=== PATIENT | male | born 1965 | race Two or more races ===

== ENCOUNTER 2025-07-06 15:39 | Inpatient (IN) | payer OTHER ==
[~2025-07-06] VITALS: Ht 170.2 cm; Wt 84.0 kg
[2025-07-06] MEDS ORDERED: SODIUM CHLORIDE 0.9% 1,000 ML IV ONE (16:00)
[2025-07-06] MEDS ORDERED: 0.9% SODIUM CHLORIDE 10 ML SYRINGE IVP PRN (16:00)
[2025-07-06 16:24] LABS: COVID AG,FIA SOURCE NASAL SWAB
[2025-07-06] MEDS: ACETAMINOPHEN 1000 MG/ISO-OSM 100 ML IV ONE (16:25)
[2025-07-06 16:52] LABS: SARS-COV2 (COVID) ANTIGEN,FIA Negative (Negative)
[2025-07-06 16:53] LABS: INFLUENZA TYPE A NEGATIVE FOR TYPE A (NEGATIVE); INFLUENZA TYPE B NEGATIVE FOR TYPE B (NEGATIVE)
[2025-07-06 17:06] LABS: CALCIUM, TOTAL 8.1 mg/dL (8.8-10.5); CREATININE 5.96 mg/dL (0.60-1.30); GLOMERULAR FILTR. RATE CALC 10 mL/min (>60); GLUCOSE,RANDOM 150 mg/dL (70-110); SODIUM SERUM 128 mmol/L (136-145); UREA NITROGEN, BLOOD 68 mg/dL (7-18)
[2025-07-06 17:09] LABS: ALCOHOL, BLOOD (SERUM) < 3 mg/dL (0-10)
[2025-07-06 17:10] LABS: PLATELET COUNT (AUTO) 123 K/uL (150-450); RED BLOOD CELL COUNT(AUTO) 3.53 MIL/uL (4.50-5.90); RED CELL DISTRIBUTION WIDTH 13.3 % (11.5-14.5); WHITE BLOOD COUNT (AUTO) 14.7 K/uL (4.5-11.0)
[2025-07-06 17:16] LABS: LACTIC ACID 1.4 mmol/L (0.4-2.0)
[2025-07-06 17:17] LABS: TROPONIN I-HIGH SENSITIVITY 379 ng/L (<76)
[2025-07-06] MEDS: PIPERACILLIN/TAZO 3.375 GM/D5W 50 ML IV ONE (17:23)
[2025-07-06] MEDS: VANCOMYCIN 1.25 GM/WATER(PEG) 250 ML IV ONE (17:24)
[2025-07-06 17:32] LABS: ASPARTATE AMINOTRANSFERASE 38 U/L (15-37); CREATINE KINASE, TOTAL ONLY 849 U/L (39-308); TOTAL PROTEIN, SERUM 7.2 g/dL (6.4-8.2)
[2025-07-06 18:02] LABS: BAND NEUTROPHILS % (MANUAL) 2 % (0-5); LYMPHOCYTES % (MANUAL) 7 % (22-44); MONOCYTES % (MANUAL) 3 % (2-9); SEGMENTED NEUTROPHILS % 88 % (40-70)
[2025-07-06 18:40] LABS: APPEARANCE,URINE HAZY (CLEAR); GLUCOSE, URINE (UA) 300-500 mg/dL (NEGATIVE); LEUKOCYTE ESTERASE ,URINE NEGATIVE (NEGATIVE); NITRATE,URINE NEGATIVE (NEGATIVE); OCCULT BLOOD,URINE LARGE (NEGATIVE); PH,URINE DRUG SCREEN 6.0 (5.0-8.0); SPECIFIC GRAVITIY, URINE 1.015 (1.003-1.030)
[2025-07-06 18:53] LABS: ALCOHOL, URINE DRUG SCREEN NEGATIVE (NEGATIVE); AMPHET/METH SCREEN,URINE NEGATIVE (NEGATIVE); BARBITURATE SCREEN, URINE NEGATIVE (NEGATIVE); CANNABINOID SCREEN,URINE NEGATIVE (NEGATIVE); COCAINE SCREEN,URINE NEGATIVE (NEGATIVE); METHADONE SCREEN, URINE NEGATIVE (NEGATIVE)
[2025-07-06 19:01] LABS: SQUAMOUS EPITHELIAL CELL,UR Few /LPF (None Seen)
[2025-07-06 19:02] LABS: SULFOSALICYLIC ACID,URINE 1+ (Negative)
[2025-07-06 19:22] LABS: TROPONIN I-HIGH SENSITIVITY 597 ng/L (<76)
[2025-07-06] MEDS: LABETALOL HCL 5 MG/ML 20 ML VIAL IVP PRN (21:35)
[2025-07-06] MEDS ORDERED: ZOLPIDEM TARTRATE 5 MG TABLET PO PRN (21:45)
[2025-07-06] MEDS ORDERED: ONDANSETRON HCL 4 MG/2 ML VIAL IVP PRN (21:45)
[2025-07-06] MEDS ORDERED: MORPHINE SULFATE 4 MG/ML SYRINGE IVP PRN (21:45)
[2025-07-06] MEDS ORDERED: MAGNESIUM HYDROXIDE SUSPENSION 30 ML UDCUP PO PRN (21:45)
[2025-07-06] MEDS ORDERED: PIPERACILLIN/TAZO 3.375 GM/D5W 50 ML IV ONE (21:45)
[2025-07-06] MEDS ORDERED: BISACODYL 10 MG RECTAL RECTAL SUPPOSITORY PR PRN (21:45)
[2025-07-06] MEDS: POTASSIUM CHLORIDE 20 MEQ ER TABLET PO ONE (22:30)
[2025-07-06] MEDS: NIFEdipine 60 MG ER TABLET PO ONE (22:54)
[2025-07-06 23:45] VITALS: BP 147/95; PULSE 122; RESP 21; TEMP 99; O2SAT 97
[2025-07-07] VITALS (13 sets, daily range): BP systolic 97–136; BP diastolic 65–89; PULSE 88–113; RESP 18–21; TEMP 97.5–99.7; O2SAT 94–99
[2025-07-07] MEDS: PIPERACILLIN SODIUM/TAZOBACTAM 2.25 GM in DEXTROSE 5%-WATER 50 ML IV ONE (00:12)
[2025-07-07] MEDS: ACETAMINOPHEN 325 MG TABLET PO PRN (00:13)
[2025-07-07] MEDS: HEPARIN SODIUM,PORCINE 5,000 UNITS/ML VIAL SQ SCH (00:13)
[2025-07-07] MEDS: ASPIRIN 81 MG CHEWABLE TABLET PO SCH (08:36)
[2025-07-07] MEDS: PANTOPRAZOLE SODIUM 40 MG DR TABLET PO SCH (08:36)
[2025-07-07] MEDS ORDERED: HEPARIN SODIUM,PORCINE 1,000 UNITS/ML VIAL ONE (09:24)
[2025-07-07] MEDS ORDERED: SODIUM CHLORIDE 0.9% 2,000 ML ONE (12:50)
[2025-07-07] MEDS ORDERED: VANCOMYCIN 1GM/WATER(PEG/NADA) 200 ML IV PRN (14:00)
[2025-07-07] MEDS: HEPARIN SODIUM,PORCINE 1,000 UNITS/ML VIAL IVCATH ONE ×2 (19:20)
[2025-07-07] MEDS: CHLORHEXIDINE GLUCONATE 2% TOWELETTE [2'S/6'S] TP SCH (21:29)
[2025-07-08] VITALS (14 sets, daily range): BP systolic 112–126; BP diastolic 72–90; PULSE 96–120; RESP 20–36; TEMP 98.4–100.4; O2SAT 89–100
[2025-07-08 06:14] LABS: PLATELET COUNT (AUTO) 119 K/uL (150-450); RED BLOOD CELL COUNT(AUTO) 3.34 MIL/uL (4.50-5.90); RED CELL DISTRIBUTION WIDTH 13.5 % (11.5-14.5); WHITE BLOOD COUNT (AUTO) 14.5 K/uL (4.5-11.0)
[2025-07-08] MEDS: ALBUTEROL SULFATE 2.5 MG/0.5 ML NEB SOLUTION NEB PRN (09:34)
[2025-07-08] MEDS: IPRATROPIUM BROMIDE 0.5 MG/2.5 ML NEB SOLUTION NEB PRN (09:35)
[2025-07-08] MEDS: VANCOMYCIN 1GM/WATER(PEG/NADA) 200 ML IV ONE (11:44)
[2025-07-08] MEDS: METOPROLOL SUCCINATE 25 MG ER TABLET PO SCH (15:08)
[2025-07-08] MEDS: CeFAZolin 1 GM/DEXTROSE 50 ML IV SCH (18:33)
[2025-07-09] VITALS (12 sets, daily range): BP systolic 100–138; BP diastolic 64–87; PULSE 78–103; RESP 18–20; TEMP 97.9–99.7; O2SAT 90–100
[2025-07-09 06:40] LABS: PLATELET COUNT (AUTO) 138 K/uL (150-450); RED BLOOD CELL COUNT(AUTO) 2.96 MIL/uL (4.50-5.90); RED CELL DISTRIBUTION WIDTH 13.9 % (11.5-14.5); WHITE BLOOD COUNT (AUTO) 13.0 K/uL (4.5-11.0)
[2025-07-09 06:55] LABS: ASPARTATE AMINOTRANSFERASE 24.0 U/L (15-37); CALCIUM, TOTAL 8.0 mg/dL (8.8-10.5); CREATININE 8.37 mg/dL (0.60-1.30); GLOMERULAR FILTR. RATE CALC 7.0 mL/min (>60); GLUCOSE,RANDOM 166.0 mg/dL (70-110); SODIUM SERUM 132.0 mmol/L (136-145); TOTAL PROTEIN, SERUM 6.5 g/dL (6.4-8.2); UREA NITROGEN, BLOOD 84.0 mg/dL (7-18)
[2025-07-09] MEDS: POTASSIUM CHLORIDE 20 MEQ ER TABLET PO ONE (13:53)
[2025-07-10] VITALS (8 sets, daily range): BP systolic 118–140; BP diastolic 63–86; PULSE 95–102; RESP 18–20; TEMP 97.5–98.8; O2SAT 92–95
[2025-07-10 06:23] LABS: PLATELET COUNT (AUTO) 214 K/uL (150-450); RED BLOOD CELL COUNT(AUTO) 2.92 MIL/uL (4.50-5.90); RED CELL DISTRIBUTION WIDTH 14.1 % (11.5-14.5); WHITE BLOOD COUNT (AUTO) 12.1 K/uL (4.5-11.0)
[2025-07-10] MEDS: ESCITALOPRAM OXALATE 10 MG TABLET PO SCH (07:50)
[2025-07-10] MEDS: HYDROCODONE/ACETAMINOPHEN 5-325 MG TABLET PO PRN (14:00)
[2025-07-10] MEDS: MELATONIN 5 MG TABLET PO SCH (21:10)
[2025-07-11] VITALS (14 sets, daily range): BP systolic 123–144; BP diastolic 66–90; PULSE 89–110; RESP 16–18; TEMP 97.9–100; O2SAT 94–97
[2025-07-11] MEDS ORDERED: VANCOMYCIN 1GM/WATER(PEG/NADA) 200 ML IV ONE (13:00)
[2025-07-11] MEDS: HEPARIN SODIUM,PORCINE 1,000 UNITS/ML VIAL IVCATH ONE ×2 (16:38)
[2025-07-12 00:40] VITALS: TEMP 98.4
[2025-07-12 08:09] LABS: PLATELET COUNT (AUTO) 355 K/uL (150-450); RED BLOOD CELL COUNT(AUTO) 2.89 MIL/uL (4.50-5.90); RED CELL DISTRIBUTION WIDTH 13.7 % (11.5-14.5); WHITE BLOOD COUNT (AUTO) 14.9 K/uL (4.5-11.0)
[2025-07-12 08:18] LABS: CALCIUM, TOTAL 7.9 mg/dL (8.8-10.5); CREATININE 7.43 mg/dL (0.60-1.30); GLOMERULAR FILTR. RATE CALC 8.0 mL/min (>60); GLUCOSE,RANDOM 92.0 mg/dL (70-110); SODIUM SERUM 133.0 mmol/L (136-145); UREA NITROGEN, BLOOD 60.0 mg/dL (7-18)
[2025-07-12 09:14] VITALS: BP 127/71; PULSE 95; RESP 18; TEMP 97.6; O2SAT 90
[2025-07-12 12:52] VITALS: BP 119/69; PULSE 72; RESP 18; TEMP 98.8; O2SAT 96
[2025-07-12 17:03] VITALS: BP 124/78; PULSE 93; RESP 18; TEMP 98.2; O2SAT 96
[2025-07-12 20:02] VITALS: BP 135/77; PULSE 100; RESP 18; TEMP 98.1; O2SAT 96
[2025-07-13 04:09] VITALS: BP 128/82; PULSE 96; RESP 18; TEMP 98.4; O2SAT 98
[2025-07-13 06:00] LABS: PLATELET COUNT (AUTO) 403 K/uL (150-450); RED BLOOD CELL COUNT(AUTO) 2.72 MIL/uL (4.50-5.90); RED CELL DISTRIBUTION WIDTH 13.7 % (11.5-14.5); WHITE BLOOD COUNT (AUTO) 12.4 K/uL (4.5-11.0)
[2025-07-13 06:24] LABS: CALCIUM, TOTAL 8.0 mg/dL (8.8-10.5); CREATININE 9.24 mg/dL (0.60-1.30); GLOMERULAR FILTR. RATE CALC 6.0 mL/min (>60); GLUCOSE,RANDOM 87.0 mg/dL (70-110); SODIUM SERUM 133.0 mmol/L (136-145); UREA NITROGEN, BLOOD 76.0 mg/dL (7-18)
[2025-07-13] MEDS ORDERED: LIDOCAINE/PF 1% 30 ML VIAL ONE (07:42)
[2025-07-13] MEDS ORDERED: BUPIVACAINE HCL/PF 0.25% 30 ML VIAL ONE (07:42)
[2025-07-13] MEDS ORDERED: BUPIVACAINE 0.25%/EPI 1:200,000/PF 30 ML VIAL ONE (07:42)
[2025-07-13] MEDS ORDERED: LIDOCAINE 1%/EPI 1:200,000/PF 30 ML VIAL ONE (07:42)
[2025-07-13] MEDS ORDERED: HYDROGEN PEROXIDE 3% 473 ML SOLUTION ONE (07:43)
[2025-07-13] MEDS ORDERED: GELATIN SPONGE,ABSORBABLE 50 MM TP ONE (07:44)
[2025-07-13] MEDS ORDERED: HEPARIN SODIUM 1000 UNITS/NS 0 ML ONE (07:47)
[2025-07-13] MEDS ORDERED: SODIUM CHLORIDE 0.9% 1,000 ML ONE (08:15)
[2025-07-13 11:52] VITALS: BP 133/74; PULSE 77; RESP 18; TEMP 98.1; O2SAT 93
[2025-07-13] MEDS ORDERED: MIDAZOLAM HCL 2 MG/2 ML VIAL ONE (12:00)
[2025-07-13] MEDS ORDERED: FentaNYL CITRATE PF 100 MCG/2 ML VIAL ONE (12:00)
[2025-07-13 15:30] VITALS: BP 137/76; PULSE 104; RESP 18; TEMP 97.9; O2SAT 95
[2025-07-13 21:03] VITALS: BP 154/94; PULSE 99; RESP 18; TEMP 98.4; O2SAT 97
[2025-07-13 23:15] VITALS: BP 163/84; PULSE 90; RESP 18; TEMP 98.4; O2SAT 97
[2025-07-13] MEDS: MELATONIN 5 MG TABLET PO PRN (23:55)
[2025-07-14 00:17] VITALS: BP 163/84; PULSE 90; RESP 18; TEMP 98.4; O2SAT 97
[2025-07-14 06:15] VITALS: BP 155/89; PULSE 92; RESP 18; TEMP 98.6; O2SAT 96
[2025-07-14] MEDS: EPOETIN ALFA 10,000 UNITS/ML VIAL SQ SCH (08:36)
[2025-07-14 09:20] LABS: PLATELET COUNT (AUTO) 459 K/uL (150-450); RED BLOOD CELL COUNT(AUTO) 2.62 MIL/uL (4.50-5.90); RED CELL DISTRIBUTION WIDTH 13.7 % (11.5-14.5); WHITE BLOOD COUNT (AUTO) 12.5 K/uL (4.5-11.0)
[2025-07-14 09:29] LABS: CALCIUM, TOTAL 7.6 mg/dL (8.8-10.5); CREATININE 11.11 mg/dL (0.60-1.30); GLOMERULAR FILTR. RATE CALC 5.0 mL/min (>60); GLUCOSE,RANDOM 87.0 mg/dL (70-110); SODIUM SERUM 133.0 mmol/L (136-145); UREA NITROGEN, BLOOD 89.0 mg/dL (7-18)
[2025-07-14] MEDS ORDERED: LIDOCAINE/PF 2% 5 ML VIAL IM ONE (11:56)
[2025-07-14] MEDS ORDERED: PROPOFOL 1% ISO-OSM 1000 MG/100 ML BOTTLE IV ONE (11:56)
[2025-07-14] MEDS ORDERED: PROPOFOL 1% 20 ML VIAL IVP ONE (11:56)
[2025-07-14] MEDS ORDERED: 0.9% SODIUM CHLORIDE 10 ML VIAL IV ONE (11:56)
[2025-07-14] MEDS ORDERED: HEPARIN SODIUM,PORCINE 1,000 UNITS/ML VIAL IVP ONE (12:03)
[2025-07-14] MEDS ORDERED: MIDAZOLAM HCL 2 MG/2 ML VIAL ONE (12:08)
[2025-07-14] MEDS ORDERED: FentaNYL CITRATE PF 100 MCG/2 ML VIAL ONE (12:08)
[2025-07-14] MEDS ORDERED: SODIUM BICARBONATE 50 MEQ/50 ML VIAL ONE (12:09)
[2025-07-14] MEDS ORDERED: LIDOCAINE/PF 1% 30 ML VIAL ONE (12:09)
[2025-07-14 12:19] VITALS: BP 146/70; PULSE 77
[2025-07-14 12:38] VITALS: BP 154/76; PULSE 74
[2025-07-14] MEDS: LIDOCAINE 1% 30 ML/SOD BICARB 8.4% 4 ML SQ ONE (12:44)
[2025-07-14 15:45] VITALS: BP 138/80; PULSE 95; RESP 19; TEMP 98.2; O2SAT 98
[2025-07-14] MEDS: CHLORHEXIDINE GLUCONATE 2% TOWELETTE [2'S/6'S] TP ONE (16:59)
[2025-07-14 19:47] VITALS: BP 154/92; PULSE 94; RESP 19; TEMP 99; O2SAT 97
[2025-07-15] VITALS (15 sets, daily range): BP systolic 109–149; BP diastolic 61–96; PULSE 82–95; RESP 16–18; TEMP 98.1–98.8; O2SAT 94–99
[2025-07-15 06:01] LABS: PLATELET COUNT (AUTO) 456 K/uL (150-450); RED BLOOD CELL COUNT(AUTO) 2.54 MIL/uL (4.50-5.90); RED CELL DISTRIBUTION WIDTH 13.6 % (11.5-14.5); WHITE BLOOD COUNT (AUTO) 10.7 K/uL (4.5-11.0)
[2025-07-15 06:13] LABS: CALCIUM, TOTAL 7.4 mg/dL (8.8-10.5); CREATININE 11.76 mg/dL (0.60-1.30); GLOMERULAR FILTR. RATE CALC 4.0 mL/min (>60); GLUCOSE,RANDOM 117.0 mg/dL (70-110); SODIUM SERUM 133.0 mmol/L (136-145); UREA NITROGEN, BLOOD 99.0 mg/dL (7-18)
[2025-07-15] MEDS ORDERED: HEPARIN SODIUM,PORCINE 1,000 UNITS/ML VIAL ONE (12:00)
[2025-07-15] MEDS: NAFCILLIN SODIUM 2 GM in DEXTROSE 5%-WATER 100 ML IV SCH (15:08)
[2025-07-16 04:34] VITALS: BP 120/76; PULSE 92; RESP 18; TEMP 99.5; O2SAT 95
[2025-07-16 06:23] LABS: ASPARTATE AMINOTRANSFERASE 13 U/L (15-37); CALCIUM, TOTAL 7.6 mg/dL (8.8-10.5); CREATININE 7.77 mg/dL (0.60-1.30); GLOMERULAR FILTR. RATE CALC 7 mL/min (>60); GLUCOSE,RANDOM 103 mg/dL (70-110); SODIUM SERUM 136 mmol/L (136-145); TOTAL PROTEIN, SERUM 7.0 g/dL (6.4-8.2); UREA NITROGEN, BLOOD 53 mg/dL (7-18)
[2025-07-16 06:51] LABS: PLATELET COUNT (AUTO) 452 K/uL (150-450); RED BLOOD CELL COUNT(AUTO) 2.47 MIL/uL (4.50-5.90); RED CELL DISTRIBUTION WIDTH 13.8 % (11.5-14.5); WHITE BLOOD COUNT (AUTO) 9.1 K/uL (4.5-11.0)
[2025-07-16 08:27] VITALS: BP 148/81; PULSE 95; RESP 18; TEMP 99; O2SAT 96
[2025-07-16] MEDS ORDERED: SODIUM CHLORIDE 0.9% 500 ML IV ONE (08:45)
[2025-07-16 11:35] VITALS: BP 124/78; PULSE 89; RESP 18; TEMP 98.1; O2SAT 98
[2025-07-16 15:37] VITALS: BP 112/59; PULSE 82; RESP 18; TEMP 99.3; O2SAT 96
[2025-07-16 20:30] VITALS: BP 136/78; PULSE 89; RESP 18; TEMP 98.2; O2SAT 98
[2025-07-16 23:40] VITALS: BP 108/63; PULSE 83; RESP 17; TEMP 98.2; O2SAT 94
[2025-07-17] VITALS (17 sets, daily range): BP systolic 123–149; BP diastolic 76–98; PULSE 80–100; RESP 18; TEMP 98.1–99.5; O2SAT 95–97
[2025-07-17] MEDS ORDERED: HEPARIN SODIUM,PORCINE 1,000 UNITS/ML VIAL ONE (09:58)
[2025-07-17] MEDS: HEPARIN SODIUM,PORCINE 1,000 UNITS/ML VIAL IVCATH ONE ×2 (11:10)
[2025-07-17] MEDS ORDERED: MIDAZOLAM HCL 2 MG/2 ML VIAL ONE (12:25)
[2025-07-17] MEDS ORDERED: FentaNYL CITRATE PF 100 MCG/2 ML VIAL ONE (12:25)
[2025-07-17] MEDS ORDERED: BENZOCAINE 20% 50 MCG/SPRAY 57 GM ONE (12:26)
[2025-07-18 04:00] VITALS: BP 131/83; PULSE 91; RESP 18; TEMP 98.2; O2SAT 94
[2025-07-18 07:09] LABS: PLATELET COUNT (AUTO) 499 K/uL (150-450); RED BLOOD CELL COUNT(AUTO) 2.54 MIL/uL (4.50-5.90); RED CELL DISTRIBUTION WIDTH 13.5 % (11.5-14.5); WHITE BLOOD COUNT (AUTO) 9.6 K/uL (4.5-11.0)
[2025-07-18 07:19] LABS: CALCIUM, TOTAL 8.1 mg/dL (8.8-10.5); CREATININE 6.97 mg/dL (0.60-1.30); GLOMERULAR FILTR. RATE CALC 8.0 mL/min (>60); GLUCOSE,RANDOM 90.0 mg/dL (70-110); SODIUM SERUM 135.0 mmol/L (136-145); UREA NITROGEN, BLOOD 40.0 mg/dL (7-18)
[2025-07-18 08:00] VITALS: BP 134/84; PULSE 80; RESP 17; TEMP 97.8; O2SAT 97
[2025-07-18 11:00] VITALS: BP 128/74; PULSE 82; RESP 18; TEMP 98; O2SAT 97
[2025-07-18 15:00] VITALS: BP 130/78; PULSE 79; RESP 17; TEMP 97.8; O2SAT 96
[2025-07-18 20:27] VITALS: BP 124/74; PULSE 89; RESP 19; TEMP 98.4; O2SAT 96
[2025-07-19] VITALS (15 sets, daily range): BP systolic 122–141; BP diastolic 73–93; PULSE 79–92; RESP 18–19; TEMP 98.1–99.1; O2SAT 97
[2025-07-19] MEDS ORDERED: SODIUM CHLORIDE 0.9% 2,000 ML ONE (09:56)
[2025-07-19] MEDS: HEPARIN SODIUM,PORCINE 1,000 UNITS/ML VIAL IVCATH PRN ×2 (14:19)
[2025-07-19] MEDS ORDERED: HEPARIN SODIUM,PORCINE 1,000 UNITS/ML VIAL ONE (16:42)
[2025-07-19] MEDS ORDERED: SODIUM CHLORIDE 0.9% 500 ML IV ONE (20:53)
[2025-07-20] VITALS (7 sets, daily range): BP systolic 123–139; BP diastolic 71–88; PULSE 71–91; RESP 17–19; TEMP 98.2–99.1; O2SAT 95–99
[2025-07-21] VITALS (8 sets, daily range): BP systolic 115–158; BP diastolic 75–97; PULSE 85–105; RESP 18; TEMP 98.4–99; O2SAT 96–98
[2025-07-21] MEDS ORDERED: LIDOCAINE/PF 1% 30 ML VIAL ONE (10:43)
[2025-07-21] MEDS ORDERED: SODIUM BICARBONATE 50 MEQ/50 ML VIAL ONE (10:43)
[2025-07-21] MEDS ORDERED: FentaNYL CITRATE PF 100 MCG/2 ML VIAL ONE (10:54)
[2025-07-21] MEDS ORDERED: MIDAZOLAM HCL 2 MG/2 ML VIAL ONE (10:55)
[2025-07-21] MEDS ORDERED: LIDOCAINE 1%/EPI 1:200,000/PF 10 ML VIAL ONE (10:58)
[2025-07-21] MEDS: LIDOCAINE 1% 30 ML/SOD BICARB 8.4% 4 ML SQ ONE (11:10)
[2025-07-21] MEDS: MIDAZOLAM HCL 2 MG/2 ML VIAL IVP ONE (11:10)
[2025-07-21] MEDS: FentaNYL CITRATE PF 100 MCG/2 ML VIAL IVP ONE (11:10)
[2025-07-21] MEDS: HEPARIN SODIUM,PORCINE 1,000 UNITS/ML 10 ML VIAL IVP ONE (11:45)
[2025-07-22] VITALS (15 sets, daily range): BP systolic 117–141; BP diastolic 65–87; PULSE 80–96; RESP 17–18; TEMP 98–99.3; O2SAT 96–99
[2025-07-22] MEDS ORDERED: SODIUM CHLORIDE 0.9% 1,000 ML ONE ×2 (05:27→05:28)
[2025-07-22 06:47] LABS: PLATELET COUNT (AUTO) 459 K/uL (150-450); RED BLOOD CELL COUNT(AUTO) 2.45 MIL/uL (4.50-5.90); RED CELL DISTRIBUTION WIDTH 13.9 % (11.5-14.5); WHITE BLOOD COUNT (AUTO) 8.0 K/uL (4.5-11.0)
[2025-07-22 07:02] LABS: CALCIUM, TOTAL 8.0 mg/dL (8.8-10.5); CREATININE 10.64 mg/dL (0.60-1.30); GLOMERULAR FILTR. RATE CALC 5.0 mL/min (>60); GLUCOSE,RANDOM 80.0 mg/dL (70-110); SODIUM SERUM 135.0 mmol/L (136-145); UREA NITROGEN, BLOOD 47.0 mg/dL (7-18)
[2025-07-22] MEDS: HEPARIN SODIUM,PORCINE 1,000 UNITS/ML VIAL IVCATH ONE ×2 (10:19)
[2025-07-22 10:21] LABS: RBC MORPHOLOGY COMMENT ABNORMAL RBC MORPH
[2025-07-22] MEDS ORDERED: HEPARIN SODIUM,PORCINE 1,000 UNITS/ML VIAL ONE (12:00)
[2025-07-22 13:07] LABS: ALBUMIN/GLOBULIN RATIO (IFE) 0.8 (0.7-1.7); ALPHA-1 (IFE & PEP) 0.3 g/dL (0.0-0.4); ALPHA-2 (IFE & PEP) 0.9 g/dL (0.4-1.0); BETA (IFE & ELP) 1.0 g/dL (0.7-1.3); BETA-2-MICROGLOBULIN 14.1 mg/L (0.6-2.4); GAMMA GLOBULINS (IFE & ELP) 1.4 g/dL (0.4-1.8); GLOBULIN TOTAL (IFE) 3.7 g/dL (2.2-3.9); IGA (IFE) 521 mg/dL (90-386); IGM (IMMUNOFIXATION) 49 mg/dL (20-172); M-SPIKE (IEP) Not Observed g/dL (Not Observed)
[2025-07-22 15:07] LABS: FREE KAPPA LIGHT CHAINS,S 209.7 mg/L (3.3-19.4); FREE KAPPA/LAMBDA LT CHN RATIO 0.70 (0.26-1.65)
[2025-07-23 04:00] VITALS: BP 113/64; PULSE 85; RESP 18; TEMP 99; O2SAT 97
[2025-07-23 07:39] VITALS: BP 114/73; PULSE 89; RESP 18; TEMP 99.9; O2SAT 96
[2025-07-23 15:50] VITALS: BP 116/75; PULSE 81; RESP 18; TEMP 98.2; O2SAT 96
[2025-07-23 19:51] VITALS: BP 119/77; PULSE 86; RESP 18; TEMP 98.6; O2SAT 98
[2025-07-23] MEDS: NAFCILLIN SODIUM 2 GM in DEXTROSE 5%-WATER 100 ML IV SCH (20:40)
[2025-07-24] VITALS (13 sets, daily range): BP systolic 121–148; BP diastolic 79–98; PULSE 87–111; RESP 18–19; TEMP 97.2–100.6; O2SAT 95–98
[2025-07-24] MEDS ORDERED: SODIUM CHLORIDE 0.9% 1,000 ML ONE (06:32)
[2025-07-24] MEDS: ETHYL ALCOHOL 62% ANTISEPTIC NASAL SANITIZER 0.6 ML AMPUL NASAL SCH (09:00)
[2025-07-24] MEDS: HEPARIN SODIUM,PORCINE 1,000 UNITS/ML VIAL IVCATH ONE ×2 (11:00)
[2025-07-25 04:00] VITALS: BP 135/75; PULSE 89; RESP 18; TEMP 98.4; O2SAT 95
[2025-07-25] MEDS ORDERED: HEPARIN SODIUM,PORCINE 1,000 UNITS/ML VIAL IVP ONE (07:46)
[2025-07-25 08:00] VITALS: BP 138/79; PULSE 70; RESP 20; TEMP 98.2; O2SAT 98
[2025-07-25] MEDS ORDERED: SODIUM CHLORIDE 0.9% 250 ML IV ONE (15:59)
[2025-07-25 16:00] VITALS: BP 139/85; PULSE 83; RESP 19; TEMP 97.9; O2SAT 98
[2025-07-25 16:12] LABS: PLATELET COUNT (AUTO) 349 K/uL (150-450); RED BLOOD CELL COUNT(AUTO) 2.55 MIL/uL (4.50-5.90); RED CELL DISTRIBUTION WIDTH 15.1 % (11.5-14.5); WHITE BLOOD COUNT (AUTO) 7.3 K/uL (4.5-11.0)
[2025-07-25 16:29] LABS: ASPARTATE AMINOTRANSFERASE 11.0 U/L (15-37); CALCIUM, TOTAL 8.2 mg/dL (8.8-10.5); CREATININE 8.18 mg/dL (0.60-1.30); GLOMERULAR FILTR. RATE CALC 7.0 mL/min (>60); GLUCOSE,RANDOM 150.0 mg/dL (70-110); SODIUM SERUM 135.0 mmol/L (136-145); TOTAL PROTEIN, SERUM 7.1 g/dL (6.4-8.2); UREA NITROGEN, BLOOD 30.0 mg/dL (7-18)
[2025-07-25 19:09] VITALS: BP 131/86; PULSE 98; RESP 19; TEMP 98.2; O2SAT 96
[2025-07-26] VITALS (13 sets, daily range): BP systolic 144–158; BP diastolic 86–104; PULSE 81–98; RESP 18–20; TEMP 96.4–99.3; O2SAT 97–100
[2025-07-26] MEDS ORDERED: SODIUM CHLORIDE 0.9% 1,000 ML ONE ×2 (05:57)
[2025-07-26] MEDS: HEPARIN SODIUM,PORCINE 1,000 UNITS/ML VIAL IVCATH ONE ×2 (10:08)
[2025-07-26] MEDS ORDERED: HEPARIN SODIUM,PORCINE 1,000 UNITS/ML 10 ML VIAL ONE (12:17)
[2025-07-26] MEDS ORDERED: SODIUM CHLORIDE 0.9% 500 ML IV ONE (16:02)
[2025-07-26] MEDS: FOLIC ACID/VIT B COMPLEX AND C TABLET PO SCH (17:42)
[2025-07-27 04:03] VITALS: BP 132/77; PULSE 88; RESP 18; TEMP 98.4; O2SAT 96
[2025-07-27 08:00] VITALS: BP 139/82; PULSE 91; RESP 20; TEMP 99.3; O2SAT 100
[2025-07-27 16:00] VITALS: BP 137/87; PULSE 85; RESP 19; TEMP 98.6; O2SAT 99
[2025-07-27 20:15] VITALS: BP 135/76; PULSE 83; RESP 18; TEMP 98.1; O2SAT 97
[2025-07-28 04:42] VITALS: BP 157/96; PULSE 88; RESP 19; TEMP 98.1; O2SAT 98
[2025-07-28 09:04] VITALS: BP 142/87; PULSE 89; RESP 18; TEMP 98.4; O2SAT 99
[2025-07-28 16:52] VITALS: BP 136/84; PULSE 89; RESP 18; TEMP 98; O2SAT 99
[2025-07-28 19:10] VITALS: BP 145/90; PULSE 92; RESP 18; TEMP 98.6; O2SAT 97
[2025-07-29] VITALS (13 sets, daily range): BP systolic 139–165; BP diastolic 83–97; PULSE 80–95; RESP 18; TEMP 97–98.4; O2SAT 96–99
[2025-07-29 06:49] LABS: PLATELET COUNT (AUTO) 397 K/uL (150-450); RED BLOOD CELL COUNT(AUTO) 2.83 MIL/uL (4.50-5.90); RED CELL DISTRIBUTION WIDTH 15.7 % (11.5-14.5); WHITE BLOOD COUNT (AUTO) 7.7 K/uL (4.5-11.0)
[2025-07-29 06:57] LABS: ASPARTATE AMINOTRANSFERASE 10 U/L (15-37); CALCIUM, TOTAL 8.1 mg/dL (8.8-10.5); CREATININE 10.33 mg/dL (0.60-1.30); GLOMERULAR FILTR. RATE CALC 5 mL/min (>60); GLUCOSE,RANDOM 82 mg/dL (70-110); SODIUM SERUM 137 mmol/L (136-145); TOTAL PROTEIN, SERUM 7.0 g/dL (6.4-8.2); UREA NITROGEN, BLOOD 40 mg/dL (7-18)
[2025-07-29] MEDS ORDERED: SODIUM CHLORIDE 0.9% 2,000 ML ONE (11:30)
[2025-07-29] MEDS: HEPARIN SODIUM,PORCINE 1,000 UNITS/ML VIAL IVCATH ONE ×2 (17:22)
[2025-07-30 04:00] VITALS: BP 147/86; PULSE 86; RESP 18; TEMP 98.2; O2SAT 98
[2025-07-30] MEDS ORDERED: SODIUM CHLORIDE 0.9% 500 ML IV ONE (04:49)
[2025-07-30 07:26] LABS: ASPARTATE AMINOTRANSFERASE 10.0 U/L (15-37); CALCIUM, TOTAL 8.3 mg/dL (8.8-10.5); CREATININE 7.15 mg/dL (0.60-1.30); GLOMERULAR FILTR. RATE CALC 8.0 mL/min (>60); GLUCOSE,RANDOM 85.0 mg/dL (70-110); SODIUM SERUM 137.0 mmol/L (136-145); TOTAL PROTEIN, SERUM 7.3 g/dL (6.4-8.2); UREA NITROGEN, BLOOD 22.0 mg/dL (7-18)
[2025-07-30 08:38] VITALS: BP 152/90; PULSE 88; RESP 18; TEMP 98.4; O2SAT 98
[2025-07-30 15:38] VITALS: BP 141/88; PULSE 86; RESP 18; TEMP 98.4; O2SAT 98
[2025-07-31] MEDS ORDERED: NIFEdipine 90 MG ER TABLET PO SCH (09:00)
== END 2025-07-30 20:44 | DRG 721 ==
LOC: EMS 15:39 → EDH 18:19 → 5S 07-07 00:06 → 4E 07-22 22:28
PROVIDERS: ADMIT Hospitalist; ATTEND Hospitalist
PROC: 5A1D70Z Performance of Urinary Filtration, Intermittent, Less than 6 Hours Per Day (ICD-10-PCS; 2025-07-07)
PROC: 5A1D70Z Performance of Urinary Filtration, Intermittent, Less than 6 Hours Per Day (ICD-10-PCS; 2025-07-09)
PROC: 5A1D70Z Performance of Urinary Filtration, Intermittent, Less than 6 Hours Per Day (ICD-10-PCS; 2025-07-11)
PROC: 0JPTXXZ Removal of Tunneled Vascular Access Device from Trunk Subcutaneous Tissue and Fascia, External Approach (ICD-10-PCS; principal; 2025-07-13 08:38)
PROC: 02HV33Z Insertion of Infusion Device into Superior Vena Cava, Percutaneous Approach (ICD-10-PCS; 2025-07-14)
PROC: B5181ZA Fluoroscopy of Superior Vena Cava using Low Osmolar Contrast, Guidance (ICD-10-PCS; 2025-07-14)
PROC: B548ZZA Ultrasonography of Superior Vena Cava, Guidance (ICD-10-PCS; 2025-07-14)
PROC: 5A1D70Z Performance of Urinary Filtration, Intermittent, Less than 6 Hours Per Day (ICD-10-PCS; 2025-07-15)
PROC: B24BZZ4 Ultrasonography of Heart with Aorta, Transesophageal (ICD-10-PCS; 2025-07-17)
PROC: 5A1D70Z Performance of Urinary Filtration, Intermittent, Less than 6 Hours Per Day (ICD-10-PCS; 2025-07-17)
PROC: 5A1D70Z Performance of Urinary Filtration, Intermittent, Less than 6 Hours Per Day (ICD-10-PCS; 2025-07-19)
PROC: 02PYX3Z Removal of Infusion Device from Great Vessel, External Approach (ICD-10-PCS; 2025-07-21)
PROC: 06HY33Z Insertion of Infusion Device into Lower Vein, Percutaneous Approach (ICD-10-PCS; 2025-07-21)
PROC: 0JH63XZ Insertion of Tunneled Vascular Access Device into Chest Subcutaneous Tissue and Fascia, Percutaneous Approach (ICD-10-PCS; 2025-07-21)
PROC: B51V1ZA Fluoroscopy of Other Veins using Low Osmolar Contrast, Guidance (ICD-10-PCS; 2025-07-21)
PROC: 5A1D70Z Performance of Urinary Filtration, Intermittent, Less than 6 Hours Per Day (ICD-10-PCS; 2025-07-22)
PROC: 5A1D70Z Performance of Urinary Filtration, Intermittent, Less than 6 Hours Per Day (ICD-10-PCS; 2025-07-24)
PROC: 5A1D70Z Performance of Urinary Filtration, Intermittent, Less than 6 Hours Per Day (ICD-10-PCS; 2025-07-26)
PROC: 5A1D70Z Performance of Urinary Filtration, Intermittent, Less than 6 Hours Per Day (ICD-10-PCS; 2025-07-29)
DX: T80.211A Bloodstream infection due to central venous catheter, initial encounter (principal); I60.9 Nontraumatic subarachnoid hemorrhage, unspecified; I33.0 Acute and subacute infective endocarditis; G06.0 Intracranial abscess and granuloma; J96.01 Acute respiratory failure with hypoxia; E44.0 Moderate protein-calorie malnutrition; G93.41 Metabolic encephalopathy; A41.01 Sepsis due to Methicillin susceptible Staphylococcus aureus; N18.6 End stage renal disease; Z99.2 Dependence on renal dialysis; N39.0 Urinary tract infection, site not specified; B96.89 Other specified bacterial agents as the cause of diseases classified elsewhere; B95.61 Methicillin susceptible Staphylococcus aureus infection as the cause of diseases classified elsewhere; D63.1 Anemia in chronic kidney disease; F32.9 Major depressive disorder, single episode, unspecified; F19.10 Other psychoactive substance abuse, uncomplicated; I50.9 Heart failure, unspecified; D64.9 Anemia, unspecified; E87.6 Hypokalemia; Z72.0 Tobacco use; R31.9 Hematuria, unspecified; F41.9 Anxiety disorder, unspecified; Y84.8 Other medical procedures as the cause of abnormal reaction of the patient, or of later complication, without mention of misadventure at the time of the procedure; I34.0 Nonrheumatic mitral (valve) insufficiency; N28.1 Cyst of kidney, acquired; Z71.6 Tobacco abuse counseling; D63.8 Anemia in other chronic diseases classified elsewhere; E87.1 Hypo-osmolality and hyponatremia; Z68.29 Body mass index [BMI] 29.0-29.9, adult
CPT/HCPCS: 36245; 36556; 36561; 70450; 70551; 71045; 76000; 76770; 80048; 80053; 80076; 80202; 80307; 81001; 81002; 82140; 82232; 82550; 82784; 83605; 83880; 83883; 84132; 84145; 84155; 84165; 84484; 85025; 85379; 85610; 86334; 87040; 87070; 87075; 87077; 87081; 87086; 87186; 87205; 87340; 87804; 90935; 93005; 93306; 93312; 93970; 94640; 99291; G0378; G0480; J0131; J0360; J0690; J0885; J1200; J1644; J2250; J2270; J2543; J2704; J3010; J3490; J7030; J7040; J7050; J7060; 36415-L1; 36415-TC; J7613